=== PATIENT | male | born 1995 | race Caucasian/White ===

== ENCOUNTER 2017-05-23 12:32 | Emergency (ER) | payer OTHER | END 2017-05-23 13:24 | disposition left against medical advice (07) | LOC: UCCORT 12:32 | DX: J02.9 Acute pharyngitis, unspecified (principal); R11.0 Nausea; Z53.21 Procedure and treatment not carried out due to patient leaving prior to being seen by health care provider ==

== ENCOUNTER 2017-05-23 17:19 | Emergency (ER) | payer OTHER ==
--- NOTE | 2017-05-23 17:44 | UC ---
Throat Pain/Nasal Sumeet HPI - HPI Summary HPI Summary: 21 y/o male PMHX, HTN, Seizures, Asthma, Autism presents to the urgent care accompany by a case resource manager from his assisted home c/o sore throat since yesterday. He states his girlfriend recently Dx with strep. Pt with difficulty swallowing. Denies fever, SOB, cough, chest pain, FERNANDEZ, N/V/D - History of Current Complaint Stated Complaint: SORE THROAT Time Seen by Provider: 05/23/17 17:41 Hx Obtained From: Patient Onset/Duration: Gradual Onset, Lasting Days, Still Present Severity: Moderate Pain Intensity: 8 Pain Scale Used: 0-10 Numeric Associated Signs & Symptoms: Positive: Negative, Dysphagia. Negative: Sinus Discomfort, Nasal Discharge, Fever, Vomiting - Epiglottits Risk Factors Epiglottis Risk Factors: Negative - Allergies/Home Medications Allergies/Adverse Reactions: Allergies Allergy/AdvReac Type Severity Reaction Status Date / Time Aripiprazole [From Abilify] Allergy Unknown Unknown Verified 05/23/17 17:45 Reaction Details Levetiracetam [From Keppra] Allergy Unknown worse Verified 05/23/17 17:45 depression and suicidal thoughts Quetiapine Allergy Unknown Unknown Verified 05/23/17 17:46 Reaction Details Valproic Acid [From Depakote] Allergy Unknown worse Verified 05/23/17 17:45 depression/suicidal thoughts Home Medications: Home Medications Albuterol HFA INHALER* [Ventolin HFA Inhaler*] 2 puff INH Q4H PRN 05/23/17 [ History Confirmed 05/23/17] Cholecalciferol [D 2000] 2,000 unit PO DAILY 05/23/17 [History Confirmed ] Hydrochlorothiazide TAB* [Hydrodiuril TAB*] 12.5 mg PO BID 05/23/17 [History Confirmed 05/23/17] Lamotrigine [Lamictal] 150 mg PO BID 05/23/17 [History Confirmed 05/23/17] Lisinopril TAB* [Prinivil TAB*] 5 mg PO DAILY 05/23/17 [History Confirmed ] Loratadine [Claritin 10 MG CAP] 10 mg PO DAILY 05/23/17 [History Confirmed 05/23] OLANzapine TAB* [Zyprexa 10 MG TAB*] 10 mg PO BEDTIME 05/23/17 [History Confirmed 05/23/17] OLANzapine TAB* [Zyprexa 2.5 MG TAB*] 2.5 mg PO DAILY 05/23/17 [History Confirmed 05/23/17] PMH/Surg Hx/FS Hx/Imm Hx Previously Healthy: Yes Cardiovascular History: Hypertension Respiratory History: Asthma Neurological History: Seizures Other Neurological History: Neurological disorder Other Psychological History: Psychological disroder, Autism - Family History Known Family History: Positive: Unknown - Social History Occupation: Disabled Lives: Assisted Living Review of Systems Constitutional: Negative Skin: Negative Eyes: Negative ENT: Sore Throat Respiratory: Negative Cardiovascular: Negative Gastrointestinal: Negative Genitourinary: Negative Motor: Negative Neurovascular: Negative Musculoskeletal: Negative Neurological: Negative Psychological: Negative All Other Systems Reviewed And Are Negative: Yes Physical Exam Triage Information Reviewed: Yes Appearance: Well-Appearing, No Pain Distress, Well-Nourished, Ill-Appearing Vital Signs Reviewed: Yes Eye Exam: Normal Eyes: Positive: Conjunctiva Clear - VERN, EOMI, fundi grossly normal ENT: Positive: Normal ENT inspection, Hearing grossly normal, Pharynx normal, Pharyngeal erythema - no exudate, TMs normal - B/L external ear with cerumen not complete impaction, canals and TMs WNL Dental Exam: Normal Neck exam: Normal Neck: Positive: Supple, Nontender, Enlarged Nodes @ - anterior cervical lypmnode tender Respiratory Exam: Normal Respiratory: Positive: Chest non-tender, Lungs clear, Normal breath sounds Cardiovascular Exam: Normal Cardiovascular: Positive: RRR, No Murmur, Pulses Normal Abdominal Exam: Normal Abdomen Description: Positive: Nontender, No Organomegaly, Soft. Negative: CVA Tenderness (R), CVA Tenderness (L) Bowel Sounds: Positive: Present Musculoskeletal Exam: Normal Musculoskeletal: Positive: Strength Intact, ROM Intact, No Edema Neurological Exam: Normal Psychological Exam: Normal Skin: Positive: rashes - B/L arms and neck with cystic acne Throat Pain/Nasal Course/Dx - Course Course Of Treatment: 21 y/o male PMHX HTN, Seizures, Asthma, Autism presents to the urgent care accompany by a case resource manager from his assisted home c/o sore throat since yesterday. He states his girlfriend recently Dx with strep. Pt with difficulty swallowing. Denies fever, SOB, cough, chest pain, FERNANDEZ, N/V/D. Hx obtained. Rapid strep ordered, result: Pt advised to take tylenol q4-6hrs prn. to allaviate symptoms of pain and swelling. Carbamide peroxide to soften wax and f/u with PCP. [facility] referral for further treatment on severe acne. manager care management and PT understood and agreed - Differential Dx/Diagnosis Differential Diagnosis/HQI/PQRI: Influenza, Mononucleosis, Pharyngitis, Tonsillitis, URI Provider Diagnoses: 1- Viral pharyngitis. 2-Cerumen impaction. 3-Cystic acne Discharge - Discharge Plan Condition: Stable Disposition: HOME Prescriptions: Carbamide Peroxide 6.5% OTIC* [DEBROX 6.5% Otic*] 5 drop BOTH EARS BID #1 bottle Patient Education Materials: Pharyngitis (ED), Acne (ED) Referrals: [facility] [[facility]] Cheryl Price [Medical Doctor] - If Needed Additional Instructions: 1-Please take full course of antibiotic to avoid resistance. 2-Take tylenol q4-6hrs as instructed to alleviate pain and swelling. 3- Pt w/ severe cystic acne Please f/u with [facility] for further treatment 4- Use otic drops as directed on both ear to soften cerumen f/u with PCP 5- If symptoms do not improve or worsen please return to the urgent care or f/u with your PCP for further evaluation and treatment
[2017-05-23 17:59] VITALS: BP 135/69
== END 2017-05-23 18:42 | disposition home or self-care (01) ==
LOC: UCCORT 17:19
DX: J02.8 Acute pharyngitis due to other specified organisms (principal); H61.23 Impacted cerumen, bilateral; L70.0 Acne vulgaris; I10 Essential (primary) hypertension; J45.909 Unspecified asthma, uncomplicated; R56.9 Unspecified convulsions; R29.90 Unspecified symptoms and signs involving the nervous system; F99 Mental disorder, not otherwise specified; F84.0 Autistic disorder; Z88.8 Allergy status to other drugs, medicaments and biological substances
CPT/HCPCS: 87651; 99212; G0463

== ENCOUNTER 2017-06-22 17:18 | Emergency (ER) | payer OTHER ==
[2017-06-22 17:48] VITALS: BP 130/70
--- NOTE | 2017-06-22 19:14 | RAD ---
INDICATION: Left rib pain COMPARISON: None TECHNIQUE: Multiple views of the ribs were obtained. FINDINGS: Bones: There is no evidence of acute rib fracture. LUNGS: The lungs are clear. There is no pneumothorax. Pleural spaces: There is no evidence of hemothorax. Other: None IMPRESSION: NEGATIVE EXAMINATION.
--- NOTE | 2017-06-22 19:46 | UC ---
Truncal Trauma HPI - HPI Summary HPI Summary: YESTERDAY TWISTED FAST TO LOOK OUT WINDOW WHILE RIDING IN BUS, AFTERWARDS FELT PAIN IN LEFT RIBS. TENDER WITH MOVEMENT AND TOUCH. NO SOB. NO FEVER. NO COUGH. NO TRAUMA. - History Of Current Complaint Chief Complaint: UCChestPain Stated Complaint: LEFT CHEST MUSCLE PAIN Time Seen by Provider: 06/22/17 18:33 Hx Obtained From: Patient, Family/[employer] Designer Hx From Patient Unobtainable Due To: Other - AUTISM Onset/Duration: Sudden Onset, Lasting Days, Still Present Onset Of Pain: Post Accident Severity Initially: Mild Severity Currently: Mild Mechanism Of Injury: Twisted Aggravating Factor(s): Movement, Deep Breathing, Cough Alleviating factor(s): Nothing - Allergies/Home Medications Allergies/Adverse Reactions: Allergies Allergy/AdvReac Type Severity Reaction Status Date / Time Aripiprazole [From Abilify] Allergy Unknown Unknown Verified 06/22/17 17:48 Reaction Details Levetiracetam [From Keppra] Allergy Unknown worse Verified 06/22/17 17:48 depression and suicidal thoughts Quetiapine Allergy Unknown Unknown Verified 06/22/17 17:48 Reaction Details Valproic Acid [From Depakote] Allergy Unknown worse Verified 06/22/17 17:48 depression/suicidal thoughts PMH/Surg Hx/FS Hx/Imm Hx Previously Healthy: Yes - Surgical History Surgical History: Yes Surgery Procedure, Year, and Place: GALL BLADDER REMOVAL AGE 19 - Family History Known Family History: Positive: Unknown - Social History Occupation: Disabled Lives: Assisted Living Alcohol Use: None Substance Use Type: None Smoking Status (MU): Former Smoker Type: Cigars Amount Used/How Often: 5 CIGARS PER MONTH Review of Systems Constitutional: Negative Skin: Negative Eyes: Negative ENT: Negative Respiratory: Negative Cardiovascular: Negative Gastrointestinal: Negative Genitourinary: Negative Motor: Negative Neurovascular: Negative Musculoskeletal: Arthralgia, Myalgia Neurological: Negative Psychological: Negative Is Patient Immunocompromised?: No All Other Systems Reviewed And Are Negative: Yes Physical Exam Triage Information Reviewed: Yes Completion Of Physical Exam Limited Due To: Other - AUTISM Appearance: Well-Appearing, No Pain Distress, Well-Nourished Vital Signs: Initial Vital Signs Temp 99.1 F 06/22/17 17:41 Pulse 75 06/22/17 17:41 Resp 16 06/22/17 17:41 BP 130/70 06/22/17 17:41 Pulse Ox 98 06/22/17 17:41 Vital Signs Reviewed: Yes Eye Exam: Normal ENT Exam: Normal ENT: Positive: Normal ENT inspection, Hearing grossly normal, Pharynx normal, TMs normal Dental Exam: Normal Neck exam: Normal Neck: Positive: Supple, Nontender, No Lymphadenopathy Respiratory: Positive: Lungs clear, Normal breath sounds, No respiratory distress, No accessory muscle use. Negative: Chest non-tender - TENDER TO PALPATION LEFT RIBS Cardiovascular Exam: Normal Cardiovascular: Positive: RRR, No Murmur, Pulses Normal, Brisk Capillary Refill Abdominal Exam: Normal Abdomen Description: Positive: Nontender, No Organomegaly, Soft. Negative: McBurney's Point Tenderness, Splenomegaly Musculoskeletal Exam: Normal Musculoskeletal: Positive: Strength Intact, ROM Intact, No Edema Neurological Exam: Normal Psychological Exam: Normal Skin Exam: Normal Truncal Trauma Course/Dx - Differential Dx/Diagnosis Differential Diagnosis/HQI/PQRI: Cardiac Contusion, Chest Wall Contusion, Spleen Trauma Provider Diagnoses: LEFT RIB SPRAIN Discharge - Discharge Plan Condition: Stable Disposition: HOME Patient Education Materials: Muscle Strain (ED), Rib Contusion (ED) Referrals: [facility] [Outside] - If Needed Non Staff,Doctor [Primary Care Provider] -
== END 2017-06-22 19:40 | disposition home or self-care (01) ==
LOC: UCCORT 17:18
DX: S23.41XA Sprain of ribs, initial encounter (principal); X50.9XXA Other and unspecified overexertion or strenuous movements or postures, initial encounter; Y92.9 Unspecified place or not applicable
CPT/HCPCS: 99212; G0463

== ENCOUNTER 2017-07-13 09:04 | Emergency (ER) | payer OTHER ==
[2017-07-13 09:40] VITALS: BP 132/77
--- NOTE | 2017-07-13 09:52 | UC ---
Lower Extremity/Ankle HPI - HPI Summary HPI Summary: right knee pain without trauma or injury. There is swelling. No prior injury to the knee and no other swelling of other joints. No hx of DM or rheumatoid arthritis. - History of Current Complaint Chief Complaint: UCLowerExtremity Stated Complaint: RIGHT LEG PAIN Time Seen by Provider: 07/13/17 09:37 Hx Obtained From: Patient Onset/Duration: Lasting Hours Severity Initially: Moderate Severity Currently: Moderate Aggravating Factor(s): Standing, Ambulation Alleviating Factor(s): Rest Able to Bear Weight: Yes - Risk Factors Gout Risk Factors: Negative DVT Risk Factors: Negative - Allergies/Home Medications Allergies/Adverse Reactions: Allergies Allergy/AdvReac Type Severity Reaction Status Date / Time Aripiprazole [From Abilify] Allergy Unknown Unknown Verified 07/13/17 09:30 Reaction Details Levetiracetam [From Keppra] Allergy Unknown worse Verified 07/13/17 09:30 depression and suicidal thoughts Quetiapine Allergy Unknown Unknown Verified 07/13/17 09:30 Reaction Details Valproic Acid [From Depakote] Allergy Unknown worse Verified 07/13/17 09:30 depression/suicidal thoughts PMH/Surg Hx/FS Hx/Imm Hx Previously Healthy: Yes - Surgical History Surgical History: Yes Surgery Procedure, Year, and Place: GALL BLADDER REMOVAL AGE 19, [facility], [place] - Family History Known Family History: Positive: Unknown - Social History Alcohol Use: None Substance Use Type: None Smoking Status (MU): Former Smoker Type: Cigars Amount Used/How Often: 5 CIGARS PER MONTH When Did the Patient Quit Smoking/Using Tobacco: 05/2017 Review of Systems Musculoskeletal: Arthralgia All Other Systems Reviewed And Are Negative: Yes Physical Exam Triage Information Reviewed: Yes Appearance: Well-Appearing, Well-Nourished, Pain Distress - obvious pain with walking into the room. Vital Signs: Initial Vital Signs Temp 99.7 F 07/13/17 09:19 Pulse 87 07/13/17 09:19 Resp 18 07/13/17 09:19 BP 132/77 07/13/17 09:19 Vital Signs Reviewed: Yes Eye Exam: Normal Eyes: Positive: Conjunctiva Clear ENT: Positive: Normal ENT inspection Neck: Positive: Supple, Nontender, No Lymphadenopathy Respiratory: Positive: No respiratory distress Cardiovascular: Positive: Pulses Normal, Brisk Capillary Refill Abdomen Description: Negative: Distended Musculoskeletal Exam: Other - right kne effusion moderate. not hot or red. Good endpoints and good stability with valgus and varus stress. There is pain without crepitus with apley grind. Neurological Exam: Normal Neurological: Positive: Alert, Muscle Tone Normal Psychological Exam: Normal Lower Extremity Course/Dx - Course Course Of Treatment: effusion without any risk factors or other symptoms suggestive of infection, rheumatoid, or internal derangement. - Differential Dx/Diagnosis Provider Diagnoses: right iknee effusion. Discharge - Discharge Plan Condition: Good Disposition: HOME Prescriptions: Naproxen TAB* [Naprosyn 250 mg TAB*] 500 mg PO Q8H PRN #21 tab PRN Reason: Pain Referrals: Maco Edwards MD [Medical Doctor] - If Needed Additional Instructions: Ice three times a day. No playing or physical activity besides walking for three days. Shukri wrap as needed.
== END 2017-07-13 10:02 | disposition home or self-care (01) ==
LOC: UCCORT 09:04
DX: M25.461 Effusion, right knee (principal); Z88.8 Allergy status to other drugs, medicaments and biological substances; Z88.5 Allergy status to narcotic agent; Z87.891 Personal history of nicotine dependence
CPT/HCPCS: 99212; G0463

== ENCOUNTER 2018-01-23 16:51 | Emergency (ER) | payer OTHER ==
--- NOTE | 2018-01-23 18:24 | UC ---
Eye Complaint HPI - HPI Summary HPI Summary: pt c/o redness and swelling below his L eye. began 2 days ago. wosening - History of Current Complaint Hx Obtained From: Patient, Family/[employer] Onset/Duration: Gradual Onset Timing: Constant Aggravating Factor(s): Nothing Alleviating Factor(s): Nothing Associated Signs And Symptoms: Negative: Photophobia, Drainage (Clear), Drainage (Purulent), Vision Impairment Bilateral, Fever - Risk Factors Penetrating Injury Risk Factor: Negative Globe Rupture Risk Factors: Negative Acute Glaucoma Risk Factors: Negative <Stacey Lua - Last Filed: 01/23/18 18:38> <Sandhya Calderon - Last Filed: 01/23/18 18:44> - History of Current Complaint Stated Complaint: (L) EYE COMPLAINT Time Seen by Provider: 01/23/18 18:17 - Allergies/Home Medications Allergies/Adverse Reactions: Allergies Allergy/AdvReac Type Severity Reaction Status Date / Time aripiprazole [From Abilify] Allergy Unknown Verified 01/23/18 18:20 Reaction Details levetiracetam Allergy Unknown Verified 01/23/18 18:20 Reaction Details quetiapine [From Seroquel] Allergy Unknown Verified 01/23/18 18:20 Reaction Details valproic acid [From Depakene] Allergy Unknown Verified 01/23/18 18:20 Reaction Details Home Medications: Home Medications Cholecalciferol TAB* [Vitamin D TAB*] 2,000 unit PO DAILY 01/23/18 [History Confirmed 01/23/18] Hydrochlorothiazide TAB* [Hydrodiuril TAB*] 12.5 mg PO DAILY 01/23/18 [History Confirmed 01/23/18] Lisinopril TAB* [Prinivil TAB*] 5 mg PO DAILY 01/23/18 [History Confirmed ] Loratadine 10 mg PO DAILY 01/23/18 [History Confirmed 01/23/18] OLANzapine TAB* [Zyprexa 10 MG TAB*] 10 mg PO BEDTIME 01/23/18 [History Confirmed 01/23/18] OLANzapine TAB* [Zyprexa 2.5 MG TAB*] 2.5 mg PO DAILY 01/23/18 [History Confirmed 01/23/18] lamoTRIgine TAB(*) [LaMICtal TAB(*)] 150 mg PO BID 01/23/18 [History Confirmed 01/23/18] PMH/Surg Hx/FS Hx/Imm Hx - Additional Past Medical History Additional PMH: autism, asthma, seizures, psychological disorder - Family History Known Family History: Positive: Unknown - Social History Lives: Care Home - Immunization History Vaccination Up to Date: Yes <Stacey Lua - Last Filed: 01/23/18 18:38> Review of Systems Constitutional: Negative Skin: Rash Eyes: Negative ENT: Negative Respiratory: Negative Cardiovascular: Negative Gastrointestinal: Negative Genitourinary: Negative Motor: Negative Neurovascular: Negative Musculoskeletal: Negative Neurological: Negative Psychological: Negative Is Patient Immunocompromised?: No All Other Systems Reviewed And Are Negative: Yes <Stacey Lua - Last Filed: 01/23/18 18:38> Physical Exam Triage Information Reviewed: Yes Appearance: Well-Appearing Vital Signs Reviewed: Yes Eyes: Positive: Conjunctiva Clear ENT: Positive: Pharynx normal, TMs normal. Negative: Nasal congestion, Nasal drainage Neck: Positive: Supple, Nontender, No Lymphadenopathy Respiratory: Positive: Lungs clear, Normal breath sounds Cardiovascular: Positive: RRR, No Murmur Abdomen Description: Positive: Nontender, No Organomegaly, Soft Bowel Sounds: Positive: Present Musculoskeletal: Positive: ROM Intact Neurological: Positive: Alert Psychological: Positive: Normal Response To Family Skin Exam: Normal, Other - Area below L eye with mild swelling and erythema. Some induration but not fluctuant. <Stacey Lua - Last Filed: 01/23/18 18:38> Vital Signs: Initial Vital Signs Temp 98.7 F 01/23/18 18:13 Pulse 78 01/23/18 18:13 Resp 14 01/23/18 18:13 BP 123/73 01/23/18 18:13 Pulse Ox 98 01/23/18 18:13 <Sandhya Calderon - Last Filed: 01/23/18 18:44> Eye Complaint Course/Dx - Course Course Of Treatment: Skin infection below L eye. No concern for periorbital cellulitis. will tx keflex and close f/u. - Differential Dx/Diagnosis Provider Diagnoses: Skin infection below L eye <Stacey Lua - Last Filed: 01/23/18 18:38> Discharge - Sign-Out/Discharge Documenting (check all that apply): Discharge - Billing Disposition and Condition Condition: STABLE Disposition: HOME <Stacey Lua - Last Filed: 01/23/18 18:38> - Billing Disposition and Condition Condition: STABLE Disposition: HOME <Sandhya Calderon - Last Filed: 01/23/18 18:44> - Discharge Plan Condition: Stable Disposition: HOME Prescriptions: Cephalexin CAP* [Keflex CAP*] 500 mg PO TID #28 cap Patient Education Materials: Cellulitis (DC) Referrals: Nelson Roman DO [Primary Care Provider] - 2 Days Additional Instructions: GO TO ER FOR ANY WORSENING Attestation Statement User Type: Provider - I was available for consult. This patient was seen by the MAYELA. The patient was not presented to, seen by, or examined by me. -Dorothea <Sandhya Calderon - Last Filed: 01/23/18 18:44>
[2018-01-23 18:25] VITALS: BP 123/73
[2018-01-23] MEDS ORDERED: Cephalexin CAP* 500 MG PO ONE ×2 (18:34)
== END 2018-01-23 18:45 | disposition home or self-care (01) ==
LOC: UCCORT 16:51 → MERGE 16:51 → EDBD 16:51 → UCCORT 18:45
DX: L08.9 Local infection of the skin and subcutaneous tissue, unspecified (principal); H57.8 Other specified disorders of eye and adnexa; F84.0 Autistic disorder; J45.909 Unspecified asthma, uncomplicated; R56.9 Unspecified convulsions; Z88.1 Allergy status to other antibiotic agents; Z88.8 Allergy status to other drugs, medicaments and biological substances; Z79.899 Other long term (current) drug therapy
CPT/HCPCS: 99202; A9270-GY; G0463